=== PATIENT | female | born 1985 | race Caucasian/White ===

== ENCOUNTER 2022-05-06 01:04 | Emergency (ER) | payer OTHER, SELFPAY ==
--- NOTE | 2022-05-06 | ECG_ITS ---
Test Reason : CHEST PAIN Blood Pressure : / mmHG Vent. Rate : 089 BPM Atrial Rate : 089 BPM P-R Int : 132 ms QRS Dur : 098 ms QT Int : 336 ms P-R-T Axes : 061 048 027 degrees QTc Int : 408 ms Normal sinus rhythm Incomplete right bundle branch block Borderline ECG No previous ECGs available Referred By: Generic ED Physician Electronically Signed By:RUBEN UMAÑA MD
--- NOTE | ~2022-05-06 | XR_ITS ---
EXAMINATION: XR CHEST CLINICAL INFORMATION: Chest pain COMPARISON: None TECHNIQUE: 2 views of the chest were obtained. FINDINGS: No significant abnormality is noted involving the heart, lungs, mediastinum, bony thorax or soft tissues. XR/XR chest 2V IMPRESSION: Unremarkable examination.
[2022-05-06 01:11] VITALS: BP 177/87; PULSE 86; RESP 18; TEMP 36.6; O2SAT 100; BMI 36.4
--- NOTE | 2022-05-06 01:32 | ED.CHESTPAIN ---
HPI - Chest Pain General Chief Complaint: Chest Pain Stated Complaint: Chest Pain Time Seen by Provider: 05/06/22 01:32 Source: patient and other (Significant other, anti) Mode of arrival: ambulatory Limitations: no limitations History of Present Illness HPI narrative: 37-year-old female who presents emergency department for evaluation of intermittent chest pain x1 month. Patient describes the chest pain is a cramping sensation located in her left chest area, she gets 10-15 episodes daily lasting 10-30 minutes. The episodes come on at rest and with exertion. She states the pain is 9/10 at its worst. She states that occasionally she feels left arm numbness associated with the pain. She does feel short of breath but denies dyspnea on exertion. She states that she has constant nausea which is worse when she gets the chest pain. She denies lightheadedness or dizziness or diaphoresis associated with the pain. She states she has noted swelling of her lower extremities with her left lower extremity being larger than her right. She has not gone on any long trips her had any recent surgeries. Patient states that when she was 1st diagnosed with hypothyroidism she had similar symptoms, she states she has been compliant with her levothyroxine. She denied fever, chills, rhinorrhea, sore throat, cough, vomiting, diarrhea. Related Data Previous Rx's Medication Instructions Recorded levothyroxine 125 mcg capsule 125 mcg PO DAILY #30 caps 05/06/22 Allergies Allergy/AdvReac Type Severity Reaction Status Date / Time penicillin V Allergy Unknown GI Unverified 07/22/14 00:00 discomfort Sulfa (Sulfonamide Allergy Unknown rash Unverified 07/22/14 00:00 Antibiotics) Latex Allergy Unknown rash Uncoded 07/22/14 00:00 latex Allergy Unknown Uncoded 11/20/13 00:00 Review of Systems Review of Systems: Yes all other systems are reviewed and are negative [facility] Past Medical History [facility] Narrative: Past medical history: Ankylosing spondylitis of her lower back, asthma, hypothyroidism. Social history: She denies tobacco, alcohol and drug use. Social History Social History Alcohol intake: never Smoked in Last 30 Days: No Use of substances other than those prescribed or required for medical reasons: No Advance Directives: No Patient : No Physical Exam Vital Signs: Vital Signs: Last Vital Signs Temp 97.8 F 05/06/22 01:42 Pulse 86 05/06/22 01:42 Resp 16 05/06/22 01:42 BP 177/87 H 05/06/22 01:42 Pulse Ox 96 05/06/22 01:42 O2 Del Method 05/06/22 01:42 BMI result Body Mass Index 36.4 Const: General: cooperative and no acute distress Orientation/consciousness: oriented to person and oriented to place Limitations: no limitations HEENT: Head: Yes normal to inspection, Yes normocephalic and Yes atraumatic Ears: external ears normal General nose exam: Normal external nose present Face and sinus: Yes normal facial exam Mouth: Normal oral and palatal mucosa present Throat: Yes posterior oropharynx normal Eyes: General: appearance normal, both eyes and all related structures Pupils: Equal, round and reactive pupils present Neck: Neck: Yes normal visual inspection, Yes no lymphadenopathy, Yes trachea midline and Yes supple Chest: Chest palpation & inspection: normal inspection of the chest and normal palpation of entire chest wall Resp: Effort & Inspection: normal respiratory effort and able to speak in complete sentences Auscultation: clear to auscultation bilaterally Cardio: Rate: regular rate Rhythm: regular rhythm Heart sounds: S1 normal heart sound present, S2 normal heart sound present and no murmurs GI: Inspection: Yes normal to inspection Palpation (GI): Soft to palpation, nontender and no guarding Auscultation: normal bowel sounds : General: Yes no CVA tenderness Back/Spine/Pelvis: Back: no CVA tenderness Skin: General skin exam: no rashes or lesions noted Neuro: General: oriented to person and oriented to place Cranial nerves: Yes CN's II-XII intact bilaterally and Yes Equal, round and reactive pupils present Cognition (Neuro): normal cognition Motor exam (neuro): 5/5 motor strength present throughout Extrem: Other: Nonpitting edema of lower extremities, symmetric General: Yes normal to inspection Psych: Appearance: grossly normal Speech and movement: Normal speech and movement present Affect: normal affect Attitude: cooperative Thought process: Normal thought process present Thought content: Normal thought content present Medical Decision Making Medical Decision Making MDM Narrative: 37-year-old female with a history of asthma, lower back ankylosing spondylitis, hypothyroidism on thyroid replacement, as who presents emergency department for evaluation of intermittent left chest cramping sensation x1 month, daily episodes 10-15 per day lasting 10-30 minutes, 9/10 at its worst. Pain is not related to her exertion level pain patient has no significant cardiac risk factors. I ordered a CBC, CMP, troponin, PT INR, PTT, D-dimer, quantitative beta-hCG, urinalysis, TSH. Chest x-ray and EKG will be obtained. 0308: Patient most likely has musculoskeletal pain as the cause of her chest pain however she states she had similar pain when she was hypothyroid and her TSH is elevated suggesting that she may benefit from an increase in her levothyroxine from 75 mcg to 125 mcg daily. This may also improve her nonpitting edema. Patient will need to follow-up with her geothermal electrical engineer for further management of her hypothyroidism. Differential Diagnosis Coronary artery disease, STEMI, non-STEMI, pneumothorax, costochondritis, pulmonary embolism, hypothyroidism Lab Data MDM Lab Attestation statement: I reviewed the patient's lab results. My independent interpretation of the patient's laboratory evaluation is as follows: Patient's D-dimer was normal and troponin was below detectable limits suggesting that she does not have myocardial injury or pulmonary embolism as the cause of her pain. The rest of her laboratory evaluation was unremarkable except for an elevated TSH of 5.10 suggesting that the patient is under medicated with her levothyroxine at 75 mcg per day. Result Diagrams: 05/06/22 01:34 05/06/22 01:40 Labs: Lab Results 05/06/22 05/06/22 05/06/22 Range/Units 01:34 01:34 01:34 WBC 8.4 (4.8-10.8) X10*3/uL RBC 4.59 (4.20-5.50) X10*6/uL Hgb 13.2 (12.0-16.0) g/dl Hct 39.0 (37.0-47.0) % MCV 85.0 (80.0-98.0) fL MCH 28.8 (27.0-33.0) pg MCHC 33.8 (31.0-35.0) g/dl RDW 13.1 (11.0-16.0) % Plt Count 338 (160-400) X10*3/uL MPV 9.2 L (9.4-12.3) fL Immature Gran % (Auto) 0.1 (0.0-0.4) % Neut % (Auto) 54.5 (45-73) % Lymph % (Auto) 34.0 (20-40) % [place] % (Auto) 8.9 (2-11) % Eos % (Auto) 2.0 (0-4) % Baso % (Auto) 0.5 (0-2) % Lymph # (Auto) 2.9 (1.2-4.9) X10*3/uL [place] # (Auto) 0.8 (0.1-1.2) X10*3/uL Eos # (Auto) 0.2 (0.0-0.4) X10*3/uL Baso # (Auto) 0.0 (0.0-0.2) X10*3/uL Abs Immat Gran (auto) 0.01 (0.00-0.03) X10*3/uL Absolute Neuts (auto) 4.6 (2.0-8.3) x10*3/uL Absolute Nucleated RBC 0.000 (0.0-0.012) X10*3/uL Nucleated RBC % (auto) 0.0 (0.0-0.2) /100WBC PT (10.0-13.1) SEC INR (0.9-1.1) APTT (26.0-36.4) SEC PT Mixing Study Cancelled PT Normal Plasma Immed Cancelled PTT Mixing Study Cancelled PTT Normal Plasma Immed Cancelled PTT Normal Plasma Post Cancelled Mixing Interpretation Cancelled D-Dimer High Sensitivty NG/ML Sodium (135-145) mmol/L Potassium (3.3-5.1) mmol/L Chloride (96-108) mmol/L Carbon Dioxide (22-29) mmol/L Anion Gap (12-20) BUN (9-16) mg/dL Creatinine (0.5-1.4) mg/dL Estim Creat Clear Calc Estimated GFR Random Glucose (60-115) mg/dL Calcium (8.4-10.2) mg/dL Total Bilirubin (0.0-1.0) mg/dL AST (5-31) U/L ALT (0-31) U/L Alkaline Phosphatase (39-117) U/L Troponin I High Sens < 3.5 (<3.5-17.0) ng/L Total Protein (6.5-8.0) g/dL Albumin (3.5-5.0) g/dL TSH (0.32-4.0) uIU/mL Beta HCG, Quant mIU/mL Urine Color Urine Appearance Urine pH (5.0-9.0) Ur Specific [place] (1.005-1.025) Urine Protein (Neg-Trace) mg/dL Urine Glucose (UA) (Negative) mg/dL Urine Ketones (Negative) mg/dL Urine Blood (Negative) Urine Nitrite (Negative) Ur Leukocyte Esterase (Negative) Urine RBC (0-2) /HPF Urine WBC (0-5) /HPF Ur Squamous Epith Cells (0-2) /HPF Urine Bacteria (None Seen) Hyaline Casts (0-2) /LPF COVID-19 ([facility]) (Negative) COVID-19 Clin Com 05/06/22 05/06/22 05/06/22 Range/Units 01:34 01:35 01:40 WBC (4.8-10.8) X10*3/uL RBC (4.20-5.50) X10*6/uL Hgb (12.0-16.0) g/dl Hct (37.0-47.0) % MCV (80.0-98.0) fL MCH (27.0-33.0) pg MCHC (31.0-35.0) g/dl RDW (11.0-16.0) % Plt Count (160-400) X10*3/uL MPV (9.4-12.3) fL Immature Gran % (Auto) (0.0-0.4) % Neut % (Auto) (45-73) % Lymph % (Auto) (20-40) % [place] % (Auto) (2-11) % Eos % (Auto) (0-4) % Baso % (Auto) (0-2) % Lymph # (Auto) (1.2-4.9) X10*3/uL [place] # (Auto) (0.1-1.2) X10*3/uL Eos # (Auto) (0.0-0.4) X10*3/uL Baso # (Auto) (0.0-0.2) X10*3/uL Abs Immat Gran (auto) (0.00-0.03) X10*3/uL Absolute Neuts (auto) (2.0-8.3) x10*3/uL Absolute Nucleated RBC (0.0-0.012) X10*3/uL Nucleated RBC % (auto) (0.0-0.2) /100WBC PT 9.8 L (10.0-13.1) SEC INR 0.9 (0.9-1.1) APTT 29.4 (26.0-36.4) SEC PT Mixing Study PT Normal Plasma Immed PTT Mixing Study PTT Normal Plasma Immed PTT Normal Plasma Post Mixing Interpretation D-Dimer High Sensitivty 157 NG/ML Sodium 139 (135-145) mmol/L Potassium 3.8 (3.3-5.1) mmol/L Chloride 105 (96-108) mmol/L Carbon Dioxide 25 (22-29) mmol/L Anion Gap 13 (12-20) BUN 14 (9-16) mg/dL Creatinine 0.74 (0.5-1.4) mg/dL Estim Creat Clear Calc 114.1 Estimated GFR > 60 Random Glucose 110 (60-115) mg/dL Calcium 9.6 (8.4-10.2) mg/dL Total Bilirubin 0.6 (0.0-1.0) mg/dL AST 24 (5-31) U/L ALT 27 (0-31) U/L Alkaline Phosphatase 50 (39-117) U/L Troponin I High Sens (<3.5-17.0) ng/L Total Protein 6.7 (6.5-8.0) g/dL Albumin 4.2 (3.5-5.0) g/dL TSH 5.10 H (0.32-4.0) uIU/mL Beta HCG, Quant < 2 mIU/mL Urine Color Urine Appearance Urine pH (5.0-9.0) Ur Specific [place] (1.005-1.025) Urine Protein (Neg-Trace) mg/dL Urine Glucose (UA) (Negative) mg/dL Urine Ketones (Negative) mg/dL Urine Blood (Negative) Urine Nitrite (Negative) Ur Leukocyte Esterase (Negative) Urine RBC (0-2) /HPF Urine WBC (0-5) /HPF Ur Squamous Epith Cells (0-2) /HPF Urine Bacteria (None Seen) Hyaline Casts (0-2) /LPF COVID-19 ([facility]) Negative (Negative) COVID-19 Clin Com See Note 05/06/22 Range/Units 02:10 WBC (4.8-10.8) X10*3/uL RBC (4.20-5.50) X10*6/uL Hgb (12.0-16.0) g/dl Hct (37.0-47.0) % MCV (80.0-98.0) fL MCH (27.0-33.0) pg MCHC (31.0-35.0) g/dl RDW (11.0-16.0) % Plt Count (160-400) X10*3/uL MPV (9.4-12.3) fL Immature Gran % (Auto) (0.0-0.4) % Neut % (Auto) (45-73) % Lymph % (Auto) (20-40) % [place] % (Auto) (2-11) % Eos % (Auto) (0-4) % Baso % (Auto) (0-2) % Lymph # (Auto) (1.2-4.9) X10*3/uL [place] # (Auto) (0.1-1.2) X10*3/uL Eos # (Auto) (0.0-0.4) X10*3/uL Baso # (Auto) (0.0-0.2) X10*3/uL Abs Immat Gran (auto) (0.00-0.03) X10*3/uL Absolute Neuts (auto) (2.0-8.3) x10*3/uL Absolute Nucleated RBC (0.0-0.012) X10*3/uL Nucleated RBC % (auto) (0.0-0.2) /100WBC PT (10.0-13.1) SEC INR (0.9-1.1) APTT (26.0-36.4) SEC PT Mixing Study PT Normal Plasma Immed PTT Mixing Study PTT Normal Plasma Immed PTT Normal Plasma Post Mixing Interpretation D-Dimer High Sensitivty NG/ML Sodium (135-145) mmol/L Potassium (3.3-5.1) mmol/L Chloride (96-108) mmol/L Carbon Dioxide (22-29) mmol/L Anion Gap (12-20) BUN (9-16) mg/dL Creatinine (0.5-1.4) mg/dL Estim Creat Clear Calc Estimated GFR Random Glucose (60-115) mg/dL Calcium (8.4-10.2) mg/dL Total Bilirubin (0.0-1.0) mg/dL AST (5-31) U/L ALT (0-31) U/L Alkaline Phosphatase (39-117) U/L Troponin I High Sens (<3.5-17.0) ng/L Total Protein (6.5-8.0) g/dL Albumin (3.5-5.0) g/dL TSH (0.32-4.0) uIU/mL Beta HCG, Quant mIU/mL Urine Color Yellow Urine Appearance Cloudy Urine pH 5.5 (5.0-9.0) Ur Specific [place] 1.010 (1.005-1.025) Urine Protein Negative (Neg-Trace) mg/dL Urine Glucose (UA) Negative (Negative) mg/dL Urine Ketones Negative (Negative) mg/dL Urine Blood Negative (Negative) Urine Nitrite Negative (Negative) Ur Leukocyte Esterase Trace H (Negative) Urine RBC 0-2 (0-2) /HPF Urine WBC 0-5 (0-5) /HPF Ur Squamous Epith Cells 11-20 (0-2) /HPF Urine Bacteria Trace (None Seen) Hyaline Casts 0-2 (0-2) /LPF COVID-19 ([facility]) (Negative) COVID-19 Clin Com Independent Interpretation I performed an independent interpretation of an: EKG Interpretation: My independent interpretation of the EKG done at 01:09 hours: Normal sinus rhythm rate of 89, normal ME, QRS and QTC intervals, incomplete right bundle-branch block, no ST segment elevation, no ST segment depression, no significant T-wave abnormalities, no PACs, no PVCs Radiology Impression Discussion of test interpretation with radiology: I have reviewed the radiologist's reading. Radiologist Impression: My independent interpretation of the chest x-ray is that there was no acute disease noted to explain her pain. The radiologist impression is unremarkable examination I agree with this interpretation Independent Historian Clinical information obtained from an independent historian. History obtained from or confirmed by: Spouse Tests considered The following testing was considered but not selected: CT pulmonary angiogram PE protocol Prescription Management I considered prescription management with: Other (Increase her Levothyroxine 125 mcg daily) Discharge Plan Discharge Clinical Impression: Acute chest wall pain Hypothyroid Qualifiers: Hypothyroidism type: unspecified Qualified Code(s): E03.9 - Hypothyroidism, unspecified Patient Disposition: Home, Self-Care Instructions: Hypothyroidism (ED) Additional Instructions: Your EKG was unremarkable. Your chest x-ray was unremarkable per Your laboratory evaluation revealed a normal D-dimer (marker for blood clots) and a nondetectable high sensitive troponin (marker of heart damage). Your TSH was elevated at 5.1 (normal is 0.3-4.0), suggesting that your being under treated with your thyroid medication. This may explain your chest pain and the swelling in her legs. I want to increase your levothyroxine from 75 mcg daily to 125 mcg daily. Once we make a change in your thyroid medication it takes 4-6 weeks for the TSH to improve but it is important that you follow-up with your geothermal electrical engineer discuss this management plan. Follow-up with your doctor in 2 days. Please return to the emergency department if your symptoms get worse or if you develop any symptoms that are concerning to you. Prescriptions: New levothyroxine 125 mcg capsule 125 mcg PO DAILY Qty: 30 0RF
[2022-05-06 01:42] VITALS: BP 177/87; PULSE 86; RESP 16; TEMP 36.6; O2SAT 96
[2022-05-06 01:44] LABS: MANUAL DIFF FLAG NO
[2022-05-06 01:46] LABS: Basophils Percent Auto 0.5 % (0-2); Eosinophils Absolute Auto 0.2 X10*3/uL (0.0-0.4); Hemoglobin 13.2 g/dl (12.0-16.0); Imm Gran Abs Auto 0.01 X10*3/uL (0.00-0.03); Imm Gran Pct Auto 0.1 % (0.0-0.4); Lymphocytes Absolute Auto 2.9 X10*3/uL (1.2-4.9); Mean Corpuscular HGB Conc 33.8 g/dl (31.0-35.0); Mean Corpuscular Hemoglobin 28.8 pg (27.0-33.0); Mean Platelet Volume 9.2 fL (9.4-12.3); Monocytes Absolute Auto 0.8 X10*3/uL (0.1-1.2); Monocytes Percent Auto 8.9 % (2-11); Neutrophils Absolute Auto 4.6 x10*3/uL (2.0-8.3); Neutrophils Percent Auto 54.5 % (45-73); Platelet Count 338 X10*3/uL (160-400); Red Blood Count 4.59 X10*6/uL (4.20-5.50); Red Cell Distribution Width 13.1 % (11.0-16.0); White Blood Count 8.4 X10*3/uL (4.8-10.8)
[2022-05-06 01:59] LABS: INTERNATIONAL NORM RATIO 0.9 (0.9-1.1); Prothrombin Time 9.8 SEC (10.0-13.1)
[2022-05-06 02:01] LABS: D Dimer High Sensitivity 157 NG/ML; Partial Thromboplastin Time 29.4 SEC (26.0-36.4)
[2022-05-06 02:01] LABS: COVID-19 Test Negative (Negative); IDNOW Serial# BCCEAD1C
[2022-05-06 02:14] LABS: Troponin-I High Sensitivity < 3.5 ng/L (<3.5-17.0)
[2022-05-06 02:15] LABS: Appearance Urine Cloudy; Color Urine Yellow; Glucose Urine UA Negative (Negative); Leukocyte Esterase Urine Trace (Negative); Nitrite Urine Negative (Negative); PH 5.5 (5.0-9.0); UMIC TRIGGER UACC YES; Urine Blood Negative (Negative); Urine Ketones Negative (Negative); Urine Protein Negative (Neg-Trace)
[2022-05-06 02:16] LABS: Alanine Aminotransferase 27 U/L (0-31); Albumin Level 4.2 g/dL (3.5-5.0); Alkaline Phosphatase 50 U/L (39-117); Anion Gap 13 (12-20); Aspartate Amino Transferase 24 U/L (5-31); Bilirubin Total 0.6 mg/dL (0.0-1.0); Blood Urea Nitrogen 14 mg/dL (9-16); Calcium 9.6 mg/dL (8.4-10.2); Carbon Dioxide 25 mmol/L (22-29); Chloride 105 mmol/L (96-108); Creatinine Clr Calc Pharmacy 114.1; Estimated Glomerular Filt Rate > 60; Glucose Random 110 mg/dL (60-115); Potassium 3.8 mmol/L (3.3-5.1); Sodium 139 mmol/L (135-145); Total Protein 6.7 g/dL (6.5-8.0)
[2022-05-06 02:19] LABS: Bacteria Urine Trace (None Seen); Hyaline Casts Urine 0-2 /LPF (0-2); RBC Urine 0-2 /HPF (0-2); WBC Urine 0-5 /HPF (0-5)
[2022-05-06 02:32] LABS: HCG Quantitative < 2 mIU/mL
== END 2022-05-06 03:24 | disposition home or self-care (01) ==
PROVIDERS: Emergency Provider Emergency Medicine Emergency Medical Services; PCP Internal Medicine
DX: R07.89 Other chest pain (principal); E03.9 Hypothyroidism, unspecified; Z20.822 Contact with and (suspected) exposure to COVID-19; Z79.899 Other long term (current) drug therapy
CPT/HCPCS: 36415; 71046; 80053; 81001; 84443; 84484; 84702; 85025; 85379; 85610; 85730; 87635; 93005; 99284; 99285

== ENCOUNTER 2024-10-06 15:55 | Outpatient (AMB) | payer OTHER, SELFPAY ==
--- NOTE | 2024-10-06 16:01 | MHC.PC.OV ---
Vital Signs 10/06/24 16:02 Height 5 ft 3 in Weight 220 lb 9.6 oz BMI 39.1 BP 122/74 Blood Pressure Location Lt brachial Position Sitting Respiration 18 Pulse 87 Pulse Source Pulse Oximeter Temp 98.4 F Temp Source Oral Pulse Oximetry (%) 99 Oxygen Delivery Method Room Air Intake Visit Reasons: establish care Intake Note: Patient is a new patient here to establish care. Transferring care from [facility] in [facility]. Medical records have been requested and have not been received. Veterinary Laboratory Diagnostician Required: No Accompanied by: Self / Same As Patient Allergies penicillin V Allergy (Unknown, Verified 10/06/24 16:25) GI discomfort Sulfa (Sulfonamide Antibiotics) Allergy (Unknown, Verified 10/06/24 16:25) rash Latex Allergy (Unknown, Uncoded 10/06/24 16:25) rash latex Allergy (Unknown, Uncoded 10/06/24 16:25) Anaphylaxis Medication List - Last Reconciled 10/06/24 by CADE Horne beclomethasone dipropionate 80 mcg/actuation mcg inhalation levothyroxine 125 mcg PO DAILY lorazepam mg PO BID methocarbamol 1,500 mg PO Q8H PRN oxcarbazepine (Trileptal) 150 mg PO DAILY propranolol 10 mg PO ONCE Tobacco use date assessed: 10/06/24 Dental Screening Dental Screen Date: 10/06/24 Did you have a dental visit in the last 12 months?: No Did you have a dental problem in the last 6 months where you did not have access to dental care?: No Was dental information given to patient?: No HPI establish care HPI Details Previous PCP: [facility] in [facility] Last visit:July, Last PE: About a year ago Specialist: psychiatrist and mucker cofferdam OBGYN:Celestino Davey, [facility] Past medical history: severe anxiety, social anxiety, PTSD, hypothyroidism, htn, severe asthma, disc degeneration-, heart palpitation-started in july, reports snoring and increased tiredness, insomnia, motor tourettes syndrome Past surgical history: macular mold in eye closed and tonsils were removed Medications: Family HX: Problem: The patient is a 39-year-old female presenting for the management of chronic conditions which include anxiety, heart palpitations, and hypothyroidism. The patient's medical history is notable for severe anxiety, PTSD, and social anxiety, for which she has been under psychiatric care. Her history of a childhood back injury has resulted in degenerative disc disease. Her hypothyroidism is currently being managed, though she expresses concerns about fatigue potentially related to deficient hormone levels. Heart palpitations, a new concern since July, are most prevalent after certain activities and are accompanied by chest pain. The patient recently developed heartburn, potentially complicating these symptoms. Her sleep quality is poor, possibly linked to suspected but unconfirmed sleep apnea, exacerbating her fatigue. Additionally, the patient reports chronic asthma, currently stable, and experiences of severe unexplained swelling in her feet. Over the years, she has seen intermittent use of propranolol which has shown effectiveness in controlling both her hypertension and anxiety symptoms. However, the thyroid medication has shown variability in levels, previously managed by an neurosurgery physician. Over the last year, the patient's medication management has faced challenges due to side effects, necessitating ongoing adjustments of therapy, especially for psychiatric medications. She also reports non-specific musculoskeletal pain that worsens in colder climates, for which evaluation by rheumatology may be beneficial. [facility] Medical History (Updated 10/21/24 @ 09:42 by CADE Horne) Tourettes syndrome Disc degeneration, lumbar Asthma PTSD (post-traumatic stress disorder) Social anxiety disorder Severe anxiety Surgical History History of detached retina repair History of tonsillectomy Family History Father No problems noted. 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 1. Little interest or pleasure in doing things: not at all 2. Feeling down, depressed, or hopeless: not at all 3. Trouble falling or staying asleep, or sleeping too much: more than half the days 4. Feeling tired or having little energy: more than half the days 5. Poor appetite or overeating: more than half the days 6. Feeling bad about yourself - or that you are a failure or have let yourself or your family down: not at all 7. Trouble concentrating on things, such as reading the newspaper or watching television: more than half the days 8. Moving or speaking so slowly that other people could have noticed. Or the opposite - being so fidgety or restless that you have been moving around a lot more than usual: not at all 9. Thoughts that you would be better off or of hurting yourself in some way: not at all Total score: 8 Depression Screening Interpretation: Positive Depression Screening Done: Yes 11324 - PHQ-9 Billing: Yes Source: Developed by Drs. Jose Armijo, Nadia Moore, Rajinder Rizo and colleagues, with an educational carmela from [employer]. Thrive Questionnaire Date Thrive assessed: 10/06/24 I am a: Patient What is your living situation today?: I have a steady place to live Within the past 12 months, did the food you bought not last and you didn't have the money to get more?: I choose not to answer this question Within the past 12 months, did you worry whether your food would run out before you got money to buy more?: I choose not to answer this question Do you have trouble paying for medicines?: I choose not to answer this question Do you have trouble getting transportation to medical appointments?: I choose not to answer this question Do you have trouble paying your heating and electricity bill?: I choose not to answer this question Do you have trouble taking care of your child, family member or friend?: No Do you have trouble with day-to-day activities such as bathing, preparing meals, shopping, managing finances, etc.?: No Are you currently unemployed and looking for a job?: Yes Are you interested in more education?: No Please select the resources that you would like help with: None Currently or been in a relationship where the following occur: I choose not to answer THRIVE Score: 0 AUDIT C Alcohol Use Questionnaire (AUDIT-C) 1. How often do you have a drink containing alcohol?: Monthly or less 2. How many drinks containing alcohol do you have on a typical day when you are drinking?: 1 or 2 3. How often do you have six or more drinks on one occasion?: Never Total Score: 1 Score Reviewed/Action Taken: No KIM-7 AMB Questionnaire KIM-7 Date KIM - 7 assessed: 10/06/24 Feeling nervous, anxious, or on edge: 3 = Nearly every day Not being able to stop or control worryin = Nearly every day Worrying too much about different things: 2 = More than half the days Trouble relaxin = Nearly every day Being so restless that it is hard to sit still: 3 = Nearly every day Becoming easily annoyed or irritable: 2 = More than half the days Feeling afraid as if something awful might happen: 0 = Not at all Total KIM-7 score (0-4 normal; 5-9 mild; 10-14 moderate; 15-21 severe): 16 Source: Developed by Drs. Jose Armijo, Nadia Moore, Rajinder Rizo and colleagues, with an educational carmela from [employer]. KIM-7 Assessment Billing KIM-7 Assessment Tool: KIM-7 Assessment 39347 ACT Questionnaire In the past 4 weeks, how much of the time did your asthma keep you from getting as much done at work, school or at home?: All of the time During the past 4 weeks, how often have you had shortness of breath?: More than once a day During the past 4 weeks, how often did your asthma symptoms wake you up at night or earlier than usual in the morning?: 4 or more nights a week During the past 4 weeks, how often have you had to use your rescue inhaler or nebulizer medication?: 2-3 times a week How would you rate your asthma control during the past 4 weeks?: Poorly controlled ACT Interpretation: Positive Score: 8 Review of Systems Const Denies headache(s), Reports lethargy and Reports snoring Eyes Denies loss of vision ENT Denies vertigo, Denies dizziness, Denies headache(s) and Denies sore throat Card Reports chest pain, Denies leg edema and Denies lightheadedness Resp Denies cough, Denies hemoptysis, Reports snoring and Denies wheezing GI Denies abdominal pain, Denies melena, Denies constipation, Denies diarrhea and Denies vomiting Denies urinary frequency, Denies dysuria and Denies urinary urgency Musc Denies arthralgias, Denies joint swelling, Denies numbness and Denies tingling Neuro Denies Abnormal speech present, Denies behavioral changes, Denies vertigo, Denies dizziness, Denies headache(s), Denies loss of vision, Denies memory loss, Denies numbness and Denies tingling Psych Denies anxiety, Denies behavioral changes, Denies depression, Denies memory loss and Denies panic attacks Natanael/Lymph Denies easy bleeding and Denies easy bruising Aller/Immun Denies wheezing Physical exam (Primary Care) Vital Signs: Last Vital Signs Temp 98.4 F 10/06/24 16:02 Pulse 87 10/06/24 16:02 Resp 18 10/06/24 16:02 BP 122/74 10/06/24 16:02 Pulse Ox 99 10/06/24 16:02 Oxygen Delivery Method Room Air 10/06/24 16:02 BMI result Body Mass Index 39.1 Tobacco/Smoking Status: Tobacco use Status Tobacco use date assessed 10/06/24 10/06/24 16:23 Patient Tobacco Use Status Former Tobacco user 10/06/24 16:23 Tobacco use type Cigarette 10/06/24 16:23 e-Cigarette/Vaping Use Never Used 10/06/24 16:23 PHQ-9: PHQ-9 Score PHQ-9: Total score 8 10/21/24 09:40 Depression Screening Interpretation: Positive Thrive Assessment: Date of Thrive Assessment Date Thrive assessed 10/06/24 10/06/24 16:23 Currently or been in a relationship where the following occur: I choose not to answer Const General: healthy appearing, no acute distress, alert and awake Nutritional Appearance: well nourished Orientation/consciousness: oriented to person, oriented to place and oriented to time HENMT Ears: TM's normal bilaterally General nose exam: Normal nasal mucous membranes and turbinates present Eyes Conjunctivae: conjunctivae normal Sclerae: sclerae normal Pupils: Equal, round and reactive pupils present Neck Neck: Yes no lymphadenopathy and Yes no JVD Thyroid: Thyroid normal Carotids: no bruits Resp Effort & Inspection: normal respiratory effort and not tachypneic Auscultation: no crackles, no rales, no rhonchi and no wheezes Cardio Rate: regular rate Rhythm: regular rhythm Heart sounds: no murmurs and normal S1 and S2 GI Palpation (GI): Soft to palpation, nontender, no hepatomegaly and no splenomegaly Auscultation: normal bowel sounds Skin General skin exam: no rashes or lesions noted and dry skin Neuro General: oriented to person, oriented to place and oriented to time Cranial nerves: Yes Equal, round and reactive pupils present Speech: No Abnormal speech present Gait exam (Neuro): Normal gait present Motor exam (neuro): no tremor noted Extrem Right upper extremity: full ROM Left upper extremity: full ROM Right lower extremity: full ROM; no edema Left lower extremity: full ROM; no edema Psych Mental Status: mental status grossly normal Speech and movement: Normal speech and movement present Affect: normal affect Attitude: cooperative Thought process: Normal thought process present Coding Level of Care Code New Pt Level 4 (16951) Diagnoses Social anxiety disorder F40.10 Hypothyroid E03.9 Hypothyroidism type: unspecified Asthma, unspecified asthma severity, unspecified whether complicated, unspecified whether persistent J45.909 Asthma complication type: unspecified Asthma persistence: unspecified Asthma severity: unspecified severity Heart palpitations R00.2 Snoring R06.83 Daytime sleepiness R40.0 Additional Codes Asthma Control Questionnaire - ACT Interpretation: Positive ([id number]) KIM-7 Assessment Billing - KIM-7 Assessment Tool: KIM-7 Assessment 87404 ([id number]) PHQ-9 - 39508 - PHQ-9 Billing: Yes ([id number]) Time Spent (min) 40 Assessment & Plan Assessment & Plan (1) Social anxiety disorder: Code(s): F40.10 - Social phobia, unspecified Category: Medical Plan: Encouraged CBT Continue oxcarbazepine 150 mg daily, lorazepam 0.5 mg BID Follow up with Psychiatry as scheduled (2) Hypothyroid: Code(s): E03.9 - Hypothyroidism, unspecified Category: Medical Qualifiers: Hypothyroidism type: unspecified Qualified Code(s): E03.9 - Hypothyroidism, unspecified Plan: We will order labs and advise Continue levothyroxine 125 mcg daily (3) Asthma: Code(s): J45.909 - Unspecified asthma, uncomplicated Category: Medical Qualifiers: Asthma complication type: unspecified Asthma persistence: unspecified Asthma severity: unspecified severity Qualified Code(s): J45.909 - Unspecified asthma, uncomplicated Plan: continue beclomethasone dipropionate 80 mcg inhalation (4) Heart palpitations: Code(s): R00.2 - Palpitations Category: Medical Plan: Heart palpitation seemed to be anxiety related or possible thyroid function We will order labs and advise Follow up with Cardiology as scheduled (5) Snoring: Code(s): R06.83 - Snoring Category: Medical Plan: We will obtain sleep study (6) Daytime sleepiness: Code(s): R40.0 - Somnolence Category: Medical Plan: We will order in-home sleep study Orders: Orders Complete Blood Count Auto Diff 10/06/24 E03.9 - Hypothyroidism, unspecified, I10 - Essential (primary) hypertension, M25.50 - Pain in unspecified joint, A69.20 - Lyme disease, unspecified, Z00.00 - Encounter for general adult medical examination without abnormal findings, F41.9 - Anxiety disorder, unspecified, G47.00 - Insomnia, unspecified, R53.83 - Other fatigue Comprehensive [place]. Panel Fast 10/06/24 E03.9 - Hypothyroidism, unspecified, I10 - Essential (primary) hypertension, M25.50 - Pain in unspecified joint, A69.20 - Lyme disease, unspecified, Z00.00 - Encounter for general adult medical examination without abnormal findings, F41.9 - Anxiety disorder, unspecified, G47.00 - Insomnia, unspecified, R53.83 - Other fatigue Lipid Panel 10/06/24 E03.9 - Hypothyroidism, unspecified, I10 - Essential (primary) hypertension, M25.50 - Pain in unspecified joint, A69.20 - Lyme disease, unspecified, Z00.00 - Encounter for general adult medical examination without abnormal findings, F41.9 - Anxiety disorder, unspecified, G47.00 - Insomnia, unspecified, R53.83 - Other fatigue UA CC w/rflx Micro + Cult 10/06/24 E03.9 - Hypothyroidism, unspecified, I10 - Essential (primary) hypertension, M25.50 - Pain in unspecified joint, A69.20 - Lyme disease, unspecified, Z00.00 - Encounter for general adult medical examination without abnormal findings, F41.9 - Anxiety disorder, unspecified, G47.00 - Insomnia, unspecified, R53.83 - Other fatigue Vitamin D 25-OH Total 10/06/24 E03.9 - Hypothyroidism, unspecified, I10 - Essential (primary) hypertension, M25.50 - Pain in unspecified joint, A69.20 - Lyme disease, unspecified, Z00.00 - Encounter for general adult medical examination without abnormal findings, F41.9 - Anxiety disorder, unspecified, G47.00 - Insomnia, unspecified, R53.83 - Other fatigue Cyclic Citrullinated Peptide 10/06/24 M25.50 - Pain in unspecified joint, A69.20 - Lyme disease, unspecified, I10 - Essential (primary) hypertension, Z00.00 - Encounter for general adult medical examination without abnormal findings, F41.9 - Anxiety disorder, unspecified, G47.00 - Insomnia, unspecified, R53.83 - Other fatigue Erythrocyte Sedimentation Rate 10/06/24 M25.50 - Pain in unspecified joint, A69.20 - Lyme disease, unspecified, I10 - Essential (primary) hypertension, Z00.00 - Encounter for general adult medical examination without abnormal findings, F41.9 - Anxiety disorder, unspecified, G47.00 - Insomnia, unspecified, R53.83 - Other fatigue Uric Acid 10/06/24 M25.50 - Pain in unspecified joint, A69.20 - Lyme disease, unspecified, I10 - Essential (primary) hypertension, Z00.00 - Encounter for general adult medical examination without abnormal findings, F41.9 - Anxiety disorder, unspecified, G47.00 - Insomnia, unspecified, R53.83 - Other fatigue Rheumatoid Factor 10/06/24 M25.50 - Pain in unspecified joint, A69.20 - Lyme disease, unspecified, I10 - Essential (primary) hypertension, Z00.00 - Encounter for general adult medical examination without abnormal findings, F41.9 - Anxiety disorder, unspecified, G47.00 - Insomnia, unspecified, R53.83 - Other fatigue TSH reflex Free T4 10/06/24 E03.9 - Hypothyroidism, unspecified, I10 - Essential (primary) hypertension, M25.50 - Pain in unspecified joint, A69.20 - Lyme disease, unspecified, Z00.00 - Encounter for general adult medical examination without abnormal findings, F41.9 - Anxiety disorder, unspecified, G47.00 - Insomnia, unspecified, R53.83 - Other fatigue Free T4 (Free Thyroxine) 10/06/24 E03.9 - Hypothyroidism, unspecified, I10 - Essential (primary) hypertension, M25.50 - Pain in unspecified joint, A69.20 - Lyme disease, unspecified, Z00.00 - Encounter for general adult medical examination without abnormal findings, F41.9 - Anxiety disorder, unspecified, G47.00 - Insomnia, unspecified, R53.83 - Other fatigue NICOLÁS Reflex Titer and Pattern 10/06/24 M25.50 - Pain in unspecified joint, A69.20 - Lyme disease, unspecified, I10 - Essential (primary) hypertension, Z00.00 - Encounter for general adult medical examination without abnormal findings, F41.9 - Anxiety disorder, unspecified, G47.00 - Insomnia, unspecified, R53.83 - Other fatigue CRP High Sensitivity 10/06/24 M25.50 - Pain in unspecified joint, A69.20 - Lyme disease, unspecified, I10 - Essential (primary) hypertension, Z00.00 - Encounter for general adult medical examination without abnormal findings, F41.9 - Anxiety disorder, unspecified, G47.00 - Insomnia, unspecified, R53.83 - Other fatigue Medications: New omeprazole 20 mg PO DAILY 90 caps 1RF
[2024-10-06 16:02] VITALS: BP 122/74; PULSE 87; RESP 18; TEMP 36.9; O2SAT 99; BMI 39.1
--- OUTSIDE RECORDS SUMMARY | 2024-10-06 17:04 | XMS_ITS | Clinical Summary ---
Author Organization [facility] Address [address] [place] [address] Phone Care Team Providers Care Electrostatic Paint Operator Name Role Phone Renuka Barnhart MD Primary Care Provider [phone] Medical History Medical History Date Comments PCOS (polycystic ovarian syndrome) 12/26/2010 DX:PCOS (polycystic ovarian syndrome) Asthma 12/26/2010 DX:Asthma Family History Medical History Relation Name Comments Hypertension Mother Relation Name Status Comments Mother Social History Tobacco Use Types Packs/Day Years Used Date Smoking Tobacco: Some Days Smokeless Tobacco: Never Alcohol Use Standard Drinks/Week Comments Not Asked 0 (1 standard drink = 0.6 oz pur e alcohol) Comments Unknown Sex and Gender Information Value Date Recorded Sex Assigned at Not on file Legal Sex Female 7:18 AM EST Gender Identity Not on file Sexual Orientation Not on file Obstetrics History Plan of Treatment Upcoming Encounters Date Type Department Care Team (Late st Contact Info) Description 02/25/2025 9:20 AM EDT Office Visit [facility] Cardiology [facility] [address] [place] [phone] Willard Self MD [address] [place] [address] [address] [place] [address] Health Maintenance Due Date Last Done Comments DTaP,Tdap,and Td Vaccines (1 - Tdap) 2005 Hepatitis B Vaccines (1 of 3 - 19+ 3-dose series) 2005 Pneumococcal Vaccine: Pediat rics (0 to 5 Years) and At-Risk Patients (6 to 64 Years) (1 of 2 - PCV) 2005 Cervical Cancer Screening: P ap Smear 2007 COVID-19 Vaccine ( - 2023-2 5 season) 2024 Depression Screening 09/17/2024 HIV Screening 09/17/2024 Hepatitis C Screening 09/17/2024 Social Influencers of Health Screening 09/17/2024 Influenza Vaccine (Season Ended) 2025 HIB Vaccines Aged Out No longer eligi ble based on patient's age to complete this topic HPV Vaccines Aged Out No longer eligi ble based on patient's age to complete this topic Hepatitis A Vaccines Aged Out No long er eligible based on patient's age to complete this topic IPV Vaccines Aged Out No longer eligi ble based on patient's age to complete this topic MMR Vaccines Aged Out No longer eligi ble based on patient's age to complete this topic Meningococcal ACWY Vaccine Aged Out N o longer eligible based on patient's age to complete this topic Meningococcal B Vaccine Aged Out No l onger eligible based on patient's age to complete this topic RSV Immunization Patients Un serena 20 months Aged Out No longer eligible b ased on patient's age to complete this topic Varicella Vaccines Aged Out No longer eligible based on patient's age to complete this topic Insurance [employer] Care Teams Electrostatic Paint Operator Relationship Specialty Start Date End Date Renuka Barnhart MD [address] [place] [address] PCP - General Internal Medicine 09/10/24
== END 2024-10-06 17:05 | disposition home or self-care (01) ==
LOC: HO.HMCH 15:56
DX: F40.10 Social phobia, unspecified (principal); E03.9 Hypothyroidism, unspecified; J45.909 Unspecified asthma, uncomplicated; R00.2 Palpitations; R06.83 Snoring; R40.0 Somnolence

== ENCOUNTER → 2024-10-06 15:55 | Outpatient (BNVA) | payer OTHER, SELFPAY | DX: I10 Essential (primary) hypertension (principal); F41.9 Anxiety disorder, unspecified; F43.10 Post-traumatic stress disorder, unspecified; E03.9 Hypothyroidism, unspecified; J45.909 Unspecified asthma, uncomplicated; G47.00 Insomnia, unspecified; F40.10 Social phobia, unspecified; R00.2 Palpitations; R06.83 Snoring; R40.0 Somnolence | CPT/HCPCS: 96127; 96160 ==

== ENCOUNTER 2024-11-11 16:32 | Outpatient (REF) | payer OTHER, SELFPAY ==
--- OUTSIDE RECORDS SUMMARY | 2024-11-11 16:34 | XMS_ITS | Clinical Summary ---
Author Organization [facility] Address [address] [place] [address] Phone Care Team Providers Care Investigative Writer Name Role Phone Renuka Barnhart MD Primary Care Provider [phone] Medical History Medical History Date Comments PCOS [...] Description 02/25/2025 9:20 AM EDT Office Visit [facility] Cardiology [facility] [address] [place] [phone] Willard Self MD [address] [place] [address] [address] [place] [address] Health Maintenance Due Date Last Done Comments DTaP,Tdap,and Td Vaccines (1 - Tdap) 2005 Hepatitis B Vaccines (1 of 3 - 19+ 3-dose series) 2005 Pneumococcal Vaccine: Pediat rics (0 to 5 Years) and At-Risk Patients (6 to 49 Years) (1 of 2 - PCV) 2005 Cervical Cancer Screening: P ap Smear 2007 COVID-19 Vaccine (1 - 2023-2 5 season) 2024 Depression Screening 09/17/2024 HIV Screening 09/17/2024 Hepatitis C Screening 09/17/2024 Social Influencers of Health Screening 09/17/2024 Influenza Vaccine (#1) 2025 HIB Vaccines Aged Out No longer [...] complete this topic Insurance [employer] Care Teams Investigative Writer Relationship Specialty Start Date End Date Renuka Barnhart MD [address] [place] [address] PCP - General Internal Medicine 09/10/24
[2024-11-11 16:46] LABS: MANUAL DIFF FLAG NO
[2024-11-11 17:09] LABS: Hematocrit 39.2 % (37.0-47.0); Hemoglobin 13.0 g/dl (12.0-16.0); Imm Gran Abs Auto 0.02 X10*3/uL (0.00-0.03); Imm Gran Pct Auto 0.3 % (0.0-0.4); Lymphocytes Absolute Auto 2.4 X10*3/uL (1.2-4.9); Mean Corpuscular HGB Conc 33.2 g/dl (31.0-35.0); Mean Corpuscular Hemoglobin 28.9 pg (27.0-33.0); Mean Corpuscular Volume 87.1 fL (80.0-98.0); NRBC Abs Auto 0.000 X10*3/uL (0.0-0.012); NRBC Pct Auto 0.0 /100WBC (0.0-0.2); Platelet Count 378 X10*3/uL (160-400); Red Blood Count 4.50 X10*6/uL (4.20-5.50); White Blood Count 7.0 X10*3/uL (4.8-10.8)
[2024-11-11 17:23] LABS: Appearance Urine Clear; Glucose Urine UA Negative (Negative); PH 5.5 (5.0-9.0); Specific Gravity - Urine 1.025 (1.005-1.025)
[2024-11-11 17:48] LABS: Alanine Aminotransferase 17 U/L (0-31); Albumin Level 4.4 g/dL (3.5-5.0); Alkaline Phosphatase 61 U/L (39-117); Anion Gap 11 (12-20); Aspartate Amino Transferase 21 U/L (5-31); Blood Urea Nitrogen 9 mg/dL (9-16); Calcium 9.1 mg/dL (8.4-10.2); Carbon Dioxide 25 mmol/L (22-29); Chloride 108 mmol/L (96-108); Cholesterol 199 mg/dL (<200); Estimated Glomerular Filt Rate > 60; HDL Cholesterol 72 mg/dL (>40); Potassium 4.1 mmol/L (3.3-5.1); Sodium 140 mmol/L (135-145); Total Protein 7.0 g/dL (6.5-8.0); Triglycerides 127 mg/dL (<150); Uric Acid 3.7 mg/dL (2.4-5.7)
[2024-11-11 18:04] LABS: Free T4 (Free Thyroxine) 1.36 ng/dL (0.71-1.85)
[2024-11-18 11:03] LABS: Anti Nuclear Antibody Pattern Nuclear, Speckled; Anti Nuclear Antibody Screen POSITIVE (NEGATIVE); Anti Nuclear Antibody Titer 1:40 titer
== END 2024-11-11 16:33 | disposition home or self-care (01) ==
LOC: HO.LAB 16:32
DX: E03.9 Hypothyroidism, unspecified (principal); M25.50 Pain in unspecified joint; A69.20 Lyme disease, unspecified; Z00.00 Encounter for general adult medical examination without abnormal findings; F41.9 Anxiety disorder, unspecified; G47.00 Insomnia, unspecified; R53.83 Other fatigue; I10 Essential (primary) hypertension
CPT/HCPCS: 36415; 80053; 80061; 81003; 82306; 84439; 84443; 84550; 85025; 85652; 86038; 86039; 86141; 86200; 86431

== ENCOUNTER 2024-11-24 15:40 | Outpatient (AMB) | payer OTHER, SELFPAY ==
--- NOTE | 2024-11-24 15:48 | A.OFFPC_ITS ---
Vital Signs 11/24/24 15:49 Height 5 ft 3 in Weight 222 lb 6 oz BMI 39.4 BP 138/90 H Blood Pressure Location Lt brachial Position Sitting Pulse 88 Pulse Source Pulse Oximeter Temp 97.1 F Temp Source Temporal Artery Scan Pulse Oximetry (%) 98 Oxygen Delivery Method Room Air Intake Visit Reasons: annual exam Arabic Professor Required: No Accompanied by: Self / Same As Patient Allergies penicillin V Allergy (Unknown, Verified 11/24/24 16:02) GI discomfort Sulfa (Sulfonamide Antibiotics) Allergy (Unknown, Verified 11/24/24 16:02) rash Latex Allergy (Unknown, Uncoded 11/24/24 16:02) rash latex Allergy (Unknown, Uncoded 11/24/24 16:02) Anaphylaxis Medication List - Last Reconciled 11/24/24 by CADE Horne beclomethasone dipropionate 80 mcg/actuation mcg inhalation levothyroxine 125 mcg PO DAILY lorazepam mg PO BID methocarbamol 1,500 mg PO Q8H PRN omeprazole 20 mg PO DAILY oxcarbazepine (Trileptal) 150 mg PO DAILY propranolol 10 mg PO ONCE Tobacco use date assessed: 11/24/24 Dental Screening Dental Screen Date: 11/24/24 Did you have a dental visit in the last 12 months?: No Did you have a dental problem in the last 6 months where you did not have access to dental care?: No Was dental information given to patient?: Patient has dentist HPI annual exam HPI Details Dentist: not in the past year Eye: about year Snellen: Right: Left: Corrected vision: yes just glasses STI screening:n/a Colonoscopy:n/a Pap Smer: year ago, up to date PHQ-9: Flu: no COVID: x3 Tdap: up to date Diet: regular Exercise: not lately, patient is a 39-year-old female presenting with peripheral edema and asthma exacerbation. The patient reports persistent swelling in her ankles, which has been ongoing for an unspecified duration. She notes that the swelling is not as severe this week but remains a concern. The patient has a history of hypothyroidism, which is currently well-managed with medication. The patient experiences asthma symptoms, including wheezing and difficulty breathing, which have worsened over the past year and a half. She uses a Qvar inhaler daily and albuterol approximately three times a week to manage her symptoms. The patient reports that her asthma symptoms have become more frequent and severe, impacting her daily activities. A positive antinuclear antibody (NICOLÁS) test was noted, indicating a potential autoimmune issue, though specific diagnosis remains undetermined. The patient has a family history of lupus and Postural Orthostatic Tachycardia Syndrome (POTS), which raises concern for autoimmune conditions. The patient has been diagnosed with vitamin D deficiency, likely due to limited sun exposure during weekdays. She plans to take vitamin D supplements to address this deficiency. The patient has slightly elevated cholesterol levels, attributed to dietary habits, particularly increased consumption of barbeque and sweets during the summer. HPI Comments History of Present Illness Details - Vitamin D supplementation recommended due to deficiency - Referral to core machine operator for further evaluation of positive NICOLÁS test - Regular monitoring of cholesterol esdras aguirre advised [facility] Medical History Tourettes syndrome Disc degeneration, lumbar Asthma PTSD (post-traumatic stress disorder) Social anxiety disorder Severe anxiety Surgical History History of detached retina repair History of tonsillectomy Family History Father No problems noted. 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 Cognitive needs: No Hearing needs: No Vision needs: Yes (Glasses) Questionnaire Thrive Questionnaire Date Thrive assessed: 11/24/24 I am a: Patient What is your living situation today?: I have a steady place to live Within the past 12 months, did the food you bought not last and you didn't have the money to get more?: I choose not to answer this question Within the past 12 months, did you worry whether your food would run out before you got money to buy more?: I choose not to answer this question Do you have trouble paying for medicines?: I choose not to answer this question Do you have trouble getting transportation to medical appointments?: I choose not to answer this question Do you have trouble paying your heating and electricity bill?: I choose not to answer this question Do you have trouble taking care of your child, family member or friend?: No Do you have trouble with day-to-day activities such as bathing, preparing meals, shopping, managing finances, etc.?: No Are you currently unemployed and looking for a job?: Yes Are you interested in more education?: No Please select the resources that you would like help with: None Currently or been in a relationship where the following occur: I choose not to answer THRIVE Score: 0 KIM-7 AMB Questionnaire KIM-7 Date KIM - 7 assessed: 11/24/24 Source: Developed by Drs. Jose Armijo, Nadia Moore, Rajinder Rizo and colleagues, with an educational carmela from [employer]. Review of Systems Const Reports daytime sleepiness, Reports fatigue and Denies headache(s) Eyes Denies loss of vision ENT Denies vertigo, Denies dizziness, Denies headache(s) and Denies sore throat Card Denies chest pain, Denies leg edema, Denies lightheadedness and Reports dyspnea Resp Denies cough, Denies hemoptysis, Reports dyspnea and Reports wheezing GI Denies abdominal pain, Denies melena, Denies constipation, Denies diarrhea and Denies vomiting Denies urinary frequency, Denies dysuria and Denies urinary urgency Musc Reports arthralgias (multiple joints that fluctuates to different joints intermittently), Reports joint swelling (Ankles), Reports muscle cramps, Denies numbness and Denies tingling Skin/Breast Reports rash Neuro Denies Abnormal speech present, Denies behavioral changes, Denies vertigo, Denies dizziness, Denies headache(s), Denies loss of vision, Denies memory loss, Denies numbness and Denies tingling Psych Reports anxiety, Denies behavioral changes, Reports depression, Denies memory loss, Denies panic attacks, Denies homicidal ideation and Denies suicidal ideation Endo Reports fatigue Natanael/Lymph Denies easy bleeding and Denies easy bruising Aller/Immun Reports wheezing Physical exam (Primary Care) Vital Signs: Last Vital Signs Temp 97.1 F 11/24/24 15:49 Pulse 88 11/24/24 15:49 BP 138/90 H 11/24/24 15:49 Pulse Ox 98 11/24/24 15:49 Oxygen Delivery Method Room Air 11/24/24 15:49 BMI result Body Mass Index 39.4 Tobacco/Smoking Status: Tobacco use Status Tobacco use date assessed 11/24/24 11/24/24 15:54 Patient Tobacco Use Status Former Tobacco user 11/24/24 15:54 Tobacco use type Cigarette 11/24/24 15:54 e-Cigarette/Vaping Use Never Used 11/24/24 15:54 Thrive Assessment: Date of Thrive Assessment Date Thrive assessed 11/24/24 11/24/24 15:54 Currently or been in a relationship where the following occur: I choose not to answer Const General: healthy appearing, no acute distress, alert and awake Nutritional Appearance: well nourished Orientation/consciousness: oriented to person, oriented to place and oriented to time HENMT Ears: TM's normal bilaterally General nose exam: Normal nasal mucous membranes and turbinates present Eyes Conjunctivae: conjunctivae normal Sclerae: sclerae normal Pupils: Equal, round and reactive pupils present Neck Neck: Yes no lymphadenopathy and Yes no JVD Thyroid: Thyroid normal Carotids: no bruits Resp Effort & Inspection: normal respiratory effort and not tachypneic Auscultation: no crackles, no rales, no rhonchi and wheezes expiratory wheezes and upper bilaterally Cardio Rate: regular rate Rhythm: regular rhythm Heart sounds: S1 normal heart sound present, S2 normal heart sound present, no murmurs and normal S1 and S2 Peripheral pulses: Peripheral pulses 2+ throughout GI Palpation (GI): Soft to palpation, nontender, no hepatomegaly and no splenomegaly Auscultation: normal bowel sounds General: Yes no CVA tenderness Back/Spine/Pelvis Back: no CVA tenderness Thoracic/Lumbar Spine: No thoracic spinal tenderness and No lumbar spinal tenderness Skin General skin exam: no rashes or lesions noted and dry skin Neuro General: oriented to person, oriented to place and oriented to time Cranial nerves: Yes CN's II-XII intact bilaterally and Yes Equal, round and reactive pupils present Speech: No Abnormal speech present Gait exam (Neuro): Normal gait present Motor exam (neuro): no tremor noted Deep tendon reflexes (DTR's): Right triceps reflex intensity grade: 2+, Left triceps reflex intensity grade: 2+, Rt Biceps (C5, C6): 2+, Left biceps reflex intensity grade: 2+, Right brachioradialis reflex intensity grade: 2+, Left brachioradialis reflex intensity grade: 2+, Right patellar reflex intensity grade: 2+ and Left patellar reflex intensity grade: 2+ Extrem General: Yes pedal edema Right upper extremity: full ROM Left upper extremity: full ROM Right lower extremity: full ROM, edema and ankle Details: edema Details: non- pitting and 2+ Left lower extremity: full ROM, edema and ankle Details: pitting edema Details: non-pitting and 2+ Psych Mental Status: mental status grossly normal Speech and movement: Normal speech and movement present Affect: normal affect Attitude: cooperative Thought process: Normal thought process present Results Reviewed Results Reviewed: Laboratory Tests 11/11/24 11/11/24 16:40 16:45 WBC 7.0 RBC 4.50 Hgb 13.0 Hct 39.2 MCV 87.1 MCH 28.9 MCHC 33.2 RDW 13.1 Plt Count 378 MPV 9.3 L Immature Gran % (Auto) 0.3 Neut % (Auto) 55.3 Lymph % (Auto) 33.9 Harrison % (Auto) 7.6 Eos % (Auto) 2.0 Baso % (Auto) 0.9 Lymph # (Auto) 2.4 Harrison # (Auto) 0.5 Sodium 140 Potassium 4.1 Chloride 108 Carbon Dioxide 25 Anion Gap 11 L BUN 9 Creatinine 0.64 Estimated GFR > 60 Fasting Glucose 96 Uric Acid 3.7 Calcium 9.1 Total Bilirubin 0.6 AST 21 ALT 17 Alkaline Phosphatase 61 C-React Prot High Sens 5.0 H Total Protein 7.0 Albumin 4.4 Triglycerides 127 Cholesterol 199 LDL Cholesterol, Calc 102 H HDL Cholesterol 72 25-OH Vitamin D Total 24.6 L TSH 0.90 Free T4 1.36 Urine Color Yellow Urine Appearance Clear Urine pH 5.5 Ur Specific [place] 1.025 Urine Protein Negative Urine Glucose (UA) Negative Urine Ketones Negative Urine Blood Negative Urine Nitrite Negative Ur Leukocyte Esterase Negative Rheumatoid Factor < 13.0 Cycl Citrul Peptide IgG <16 NICOLÁS Screen POSITIVE A NICOLÁS Titer 1:40 H NICOLÁS Pattern Nuclear, Speckled A Coding Level of Care Code Est Pt Prev Care 18-39y(90806) Diagnoses Annual physical exam Z00.00 Tiredness R53.83 Other insomnia G47.09 Insomnia type: other insomnia Asthma, unspecified asthma severity, unspecified whether complicated, unspecified whether persistent J45.909 Asthma severity: unspecified severity Asthma persistence: unspecified Asthma complication type: unspecified Snoring R06.83 Daytime sleepiness R40.0 Multiple joint pain M25.50 Hypertension, unspecified type I10 Hypertension type: unspecified Social anxiety disorder F40.10 Severe anxiety F41.9 Anxiety F41.9 Heart palpitations R00.2 Time Spent (min) 39 Assessment & Plan Assessment & Plan (1) Annual physical exam: Code(s): Z00.00 - Encounter for general adult medical examination without abnormal findings Category: Medical (2) Tiredness: Code(s): R53.83 - Other fatigue Category: Medical (3) Insomnia: Code(s): G47.00 - Insomnia, unspecified Category: Medical Qualifiers: Insomnia type: other insomnia Qualified Code(s): G47.09 - Other insomnia (4) Asthma: Code(s): J45.909 - Unspecified asthma, uncomplicated Category: Medical Qualifiers: Asthma severity: unspecified severity Asthma persistence: unspecified Asthma complication type: unspecified Qualified Code(s): J45.909 - Unspecified asthma, uncomplicated (5) Snoring: Code(s): R06.83 - Snoring Category: Medical (6) Daytime sleepiness: Code(s): R40.0 - Somnolence Category: Medical (7) Multiple joint pain: Code(s): M25.50 - Pain in unspecified joint Category: Medical (8) HTN (hypertension): Code(s): I10 - Essential (primary) hypertension Category: Medical Qualifiers: Hypertension type: unspecified Qualified Code(s): I10 - Essential (primary) hypertension (9) Social anxiety disorder: Code(s): F40.10 - Social phobia, unspecified Category: Medical (10) Severe anxiety: Code(s): F41.9 - Anxiety disorder, unspecified Category: Medical (11) Anxiety: Code(s): F41.9 - Anxiety disorder, unspecified Category: Medical (12) Heart palpitations: Code(s): R00.2 - Palpitations Category: Medical Plan Preventative guidelines and recent labs reviewed with the patient. Patient had a Pap smear a year ago and is on schedule to follow up. Patient continues to have daytime sleepiness and feeling fatigue. His sleep study was ordered on her previous visit which has not been completed as yet. Thyroid levels are within normal limits. Continue levothyroxine 125 mcg daily we will recheck thyroid function in 3 months. Encouraged CBT. Continue oxcarbazepine 150 mg daily. Follow up with Psychiatry as scheduled. Patient has a history of on and off palpitation attributed to anxiety which is managed by propranolol. The patient continues to have swelling in lower extremities on and off. 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 However, the swelling is intermittent, she has an elevated crp at 5.0 which leads to concern of a inflammation process going on. The patient will be referred to a core machine operator for further evaluation of the positive antinuclear antibody NICOLÁS) test to explore potential autoimmune conditions such as lupus. Vitamin D supplementation is recommended to address the deficiency, and the patient is advised to increase sun exposure when possible. Cholesterol levels will be monitored regularly, and dietary modifications are suggested to manage the slight elevation. For asthma management, the patient will start using Advair and pause the current inhaler regimen to assess effectiveness. Follow-up in three months is planned to evaluate asthma control and adjust treatment as necessary. Patient was informed and verbally consented to the use of an ambient scribe for clinic note documentation during this visit. Orders: Referrals Rheumatology Referral R76.8 - Other specified abnormal immunological findings in serum Medications: New fluticasone propion-salmeterol 250-50 mcg/dose (Advair Diskus) 1 inh inhalation BID 60 ea 0RF Refilled levothyroxine 125 mcg PO DAILY 90 caps 3RF Patient Instructions: - Follow up with the core machine operator as referred for further evaluation of the positive NICOLÁS test. - Start vitamin D supplementation and try to increase sun exposure. - Monitor cholesterol levels and consider dietary changes to manage elevation. - Begin using Advair for asthma management and pause current inhalers. - Schedule a follow-up appointment in three months to assess asthma control.
[2024-11-24 15:49] VITALS: BP 138/90; PULSE 88; TEMP 36.2; O2SAT 98; BMI 39.4
--- OUTSIDE RECORDS SUMMARY | 2024-11-24 16:28 | XMS_ITS | Clinical Summary ---
Author Organization [facility] Address [address] [place] [address] Phone Care Team Providers Care Public Space Attendant Name Role Phone Renuka Barnhart MD Primary Care Provider [phone] Medical History Medical History Date Comments PCOS [...] Description 02/25/2025 9:20 AM EDT Office Visit [facility] Cardiology [facility] [address] [place] [phone] Willard Self MD [address] [place] [address] [address] [place] [address] Health Maintenance Due Date Last Done Comments DTaP,Tdap,and Td Vaccines (1 - Tdap) 2005 Hepatitis B Vaccines (1 of 3 - 19+ 3-dose series) 2005 Pneumococcal Vaccine: Pediat rics (0 to 5 Years) and At-Risk Patients (6 to 49 Years) (1 of 2 - PCV) 2005 Cervical Cancer Screening: P ap Smear 2007 COVID-19 Vaccine (1 - 2023-2 5 season) 2024 Depression Screening 05/06/2024 HIV Screening 09/17/2024 Hepatitis C Screening 09/17/2024 [...] complete this topic Insurance [employer] Care Teams Public Space Attendant Relationship Specialty Start Date End Date Renuka Barnhart MD [id number] [place] [address] PCP - General Internal Medicine 09/10/24
== END 2024-11-24 23:04 | disposition home or self-care (01) ==
LOC: HO.HMCH 15:41
DX: Z00.00 Encounter for general adult medical examination without abnormal findings (principal); R53.83 Other fatigue; G47.09 Other insomnia; J45.909 Unspecified asthma, uncomplicated; R06.83 Snoring; R40.0 Somnolence; M25.50 Pain in unspecified joint; I10 Essential (primary) hypertension; F40.10 Social phobia, unspecified; F41.9 Anxiety disorder, unspecified; R00.2 Palpitations

== ENCOUNTER 2025-01-25 16:17 | Outpatient (REF) | payer OTHER, SELFPAY ==
[2025-01-25 17:31] LABS: Appearance Urine Cloudy; Glucose Urine UA Negative (Negative); PH 5.0 (5.0-9.0); Specific Gravity - Urine 1.025 (1.005-1.025)
== END 2025-01-25 16:18 | disposition home or self-care (01) ==
LOC: HO.LAB 16:17
DX: R39.15 Urgency of urination (principal)
CPT/HCPCS: 81003

== ENCOUNTER 2025-02-16 15:59 | Outpatient (AMB) | payer OTHER, SELFPAY ==
--- NOTE | 2025-02-16 16:14 | A.OFFPC_ITS ---
Vital Signs 02/16/25 16:16 Height 5 ft 3 in Weight 223 lb 4 oz BMI 39.5 BP 118/68 Blood Pressure Location Rt brachial Position Sitting Pulse 86 Pulse Source Pulse Oximeter Temp 97.1 F Temp Source Temporal Artery Scan Pulse Oximetry (%) 98 Oxygen Delivery Method Room Air Intake Visit Reasons: asthma/swelling edema Intake Note: Patient is here to follow up on Asthma, Swelling edema. Flight Test Data Acquisition Technician Required: No Perforator: Not Required per policy Accompanied by: Self / Same As Patient Allergies penicillin V Allergy (Unknown, Verified 02/16/25 16:34) GI discomfort Sulfa (Sulfonamide Antibiotics) Allergy (Unknown, Verified 02/16/25 16:34) rash Latex Allergy (Unknown, Uncoded 02/16/25 16:34) rash latex Allergy (Unknown, Uncoded 02/16/25 16:34) Anaphylaxis Medication List - Last Reconciled 02/16/25 by CADE Horne fluticasone propion-salmeterol 250-50 mcg/dose (Advair Diskus) 1 inh inhalation BID levothyroxine (Synthroid) 125 mcg PO DAILY lorazepam 1 mg PO BID methocarbamol 1,500 mg PO Q8H PRN propranolol 10 mg PO ONCE Tobacco use date assessed: 02/16/25 Dental Screening Dental Screen Date: 11/24/24 HPI asthma/swelling edema HPI Details The patient is a 39-year-old female presenting with sinus arrhythmia and anxiety. The sinus arrhythmia was identified through a Holter monitor test conducted in August, which showed sinus arrhythmia along with other unspecified findings. The patient experiences palpitations that can become severe enough to cause a sensation of impending syncope. These episodes occur randomly and resolve spontaneously. Anxiety has been a contributing factor to the patient's symptoms, with episodes of increased heart rate and palpitations. The patient has been managing anxiety with lifestyle modifications and is awaiting further evaluation by a filament welder. The patient has a positive NICOLÁS test, which was not considered highly significant by the fancy sewer, and a follow-up is scheduled for March 19. The patient is currently on leave from work due to health concerns and is considering extending this leave until after the cardiology evaluation. The patient was found to have a vitamin D deficiency, for which she is taking supplements. She reports improvement in her vitamin D levels since starting supplementation. The patient found after stopping on of her Trileptal her joint swelling has decreased significantly She is seeing [facility] rheumatology Mar 21 and cardiology the end of February. REPLACED BY [facility] Medical History Tourettes syndrome Disc degeneration, lumbar Asthma PTSD (post-traumatic stress disorder) Social anxiety disorder Severe anxiety Surgical History History of detached retina repair History of tonsillectomy Family History Father No problems noted. 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 Cognitive needs: No Hearing needs: No Vision needs: Yes (Glasses) Questionnaire Thrive Questionnaire Date Thrive assessed: 10/06/24 I am a: Patient What is your living situation today?: I have a steady place to live Within the past 12 months, did the food you bought not last and you didn't have the money to get more?: I choose not to answer this question Within the past 12 months, did you worry whether your food would run out before you got money to buy more?: I choose not to answer this question Do you have trouble paying for medicines?: I choose not to answer this question Do you have trouble getting transportation to medical appointments?: I choose not to answer this question Do you have trouble paying your heating and electricity bill?: I choose not to answer this question Do you have trouble taking care of your child, family member or friend?: No Do you have trouble with day-to-day activities such as bathing, preparing meals, shopping, managing finances, etc.?: No Are you currently unemployed and looking for a job?: Yes Are you interested in more education?: No Please select the resources that you would like help with: None Currently or been in a relationship where the following occur: I choose not to answer THRIVE Score: 0 KMI-7 AMB Questionnaire KIM-7 Date KIM - 7 assessed: 11/24/24 Source: Developed by Drs. Jose Armijo, Nadia Moore, Rajinder Rizo and colleagues, with an educational carmela from [email or web address]. Review of Systems Const Denies body aches, Denies chills, Denies fever(s), Denies headache(s) and Denies poor appetite Eyes Reports no additional complaints ENT Denies dysphagia, Denies dizziness, Denies headache(s) and Denies odynophagia Card Denies chest pain, Denies syncope, Reports rapid heart rate, Denies edema, Denies irregular heart rhythm, Denies lightheadedness and Denies dyspnea Resp Denies cough and Denies dyspnea GI Denies abdominal pain, Denies constipation, Denies dysphagia, Denies diarrhea, Denies nausea, Denies odynophagia and Denies vomiting Reports no additional complaints Musc Denies deformity, Reports arthralgias (mild(multiple)) and Denies joint swelling Skin/Breast Reports system reviewed and no additional complaints, except as documented Neuro Denies dizziness, Denies syncope and Denies headache(s) Psych Reports anxiety and Reports panic attacks Physical exam (Primary Care) Vital Signs: Last Vital Signs Temp 97.1 F 02/16/25 16:16 Pulse 86 02/16/25 16:16 BP 118/68 02/16/25 16:16 Pulse Ox 98 02/16/25 16:16 Oxygen Delivery Method Room Air 02/16/25 16:16 BMI result Body Mass Index 39.5 Tobacco/Smoking Status: Tobacco use Status Tobacco use date assessed 02/16/25 02/16/25 16:24 Patient Tobacco Use Status Former Tobacco user 02/16/25 16:24 Tobacco use type Cigarette 02/16/25 16:24 e-Cigarette/Vaping Use Never Used 02/16/25 16:24 Thrive Assessment: Date of Thrive Assessment Date Thrive assessed 10/06/24 02/16/25 16:24 Currently or been in a relationship where the following occur: I choose not to answer Const General: cooperative, healthy appearing, comfortable and no acute distress Orientation/consciousness: patient oriented x3 HENMT Head: Yes normocephalic Ears: hearing grossly normal bilaterally General nose exam: Normal external nose present Eyes General: appearance normal, both eyes and all related structures Conjunctivae: conjunctivae normal Neck Neck: Yes full ROM and Yes no lymphadenopathy Resp Effort & Inspection: normal respiratory effort Auscultation: clear to auscultation bilaterally, no crackles, no rales, no rhonchi and no wheezes Cardio Rate: regular rate Rhythm: abnormal rhythm regularly irregular Heart sounds: S1 normal heart sound present and S2 normal heart sound present GI Palpation (GI): Soft to palpation, nontender and No hepatosplenomegaly present Auscultation: normal bowel sounds General: Yes no CVA tenderness Back/Spine/Pelvis Back: no CVA tenderness Skin General skin exam: no rashes or lesions noted Neuro General: patient oriented x3 Gait exam (Neuro): Normal gait present Extrem General: Yes normal to inspection, Yes full ROM and No edema Right lower extremity: ankle Details: no edema; no tenderness Left lower extremity: ankle Details: no edema; no tenderness Psych Affect: normal affect Attitude: cooperative Insight: Good insight present (Psych) Judgement: Good judgement present (Psych) Coding Level of Care Code Est Pt Level 4 (81613) Diagnoses Severe anxiety F41.9 Social anxiety disorder F40.10 Hypertension, unspecified type I10 Hypertension type: unspecified Heart palpitations R00.2 Multiple joint pain M25.50 Positive NICOLÁS (antinuclear antibody) R76.8 Obesity (BMI 35.0-39.9 without comorbidity) E66.9 Other insomnia G47.09 Insomnia type: other insomnia Asthma, unspecified asthma severity, unspecified whether complicated, unspecified whether persistent J45.909 Asthma complication type: unspecified Asthma persistence: unspecified Asthma severity: unspecified severity Snoring R06.83 Daytime sleepiness R40.0 Hypothyroid E03.9 Hypothyroidism type: unspecified Time Spent (min) 39 Assessment & Plan Assessment & Plan (1) Severe anxiety: Code(s): F41.9 - Anxiety disorder, unspecified Category: Medical Plan: The patient is seen a new psychiatrist who increased her Ativan from 0.5 b.i.d. to 1 mg b.i.d.. Reports that she is still getting some heart palpitation but t his has calmed down significantly. Denies SI/HI. Follow up with Psychiatry as scheduled (2) Social anxiety disorder: Code(s): F40.10 - Social phobia, unspecified Category: Medical Plan: Same as above. (3) HTN (hypertension): Code(s): I10 - Essential (primary) hypertension Category: Medical Qualifiers: Hypertension type: unspecified Qualified Code(s): I10 - Essential (primary) hypertension Plan: Blood pressure 118/68 within goal Reinforce low-salt diet and adequate hydration (4) Heart palpitations: Code(s): R00.2 - Palpitations Category: Medical Plan: Continue propranolol as ordered by psychiatry. The patient has an upcoming appointment with cardiology for further evaluation. The patient already completed an holter monitor that showed sinus arrhythmia. (5) Multiple joint pain: Code(s): M25.50 - Pain in unspecified joint Category: Medical Plan: Multiple joints discomfort ongoing but tolerable, per patient. continue methocarbamol 1500 mg Q 8H p.r.n. (6) Positive NICOLÁS (antinuclear antibody): Code(s): R76.8 - Other specified abnormal immunological findings in serum Category: Medical Plan: The patient is scheduled for a follow-up with a fancy sewer to monitor the significance of the positive NICOLÁS test. Her hours were decreased at work due to the increased stress she was having about her health condition, worrying about the unknown. She would like this to be extended until she is seen by rheumatology and cardiology. Will give an extension till March 21. (7) Obesity (BMI 35.0-39.9 without comorbidity): Code(s): E66.9 - Obesity, unspecified Category: Medical Plan: Discussed lifestyle modifications including dietary changes and physical activity The patient reports that she was given zepbound by an online line decorator and will be working on losing some weight. (8) Insomnia: Code(s): G47.00 - Insomnia, unspecified Category: Medical Qualifiers: Insomnia type: other insomnia Qualified Code(s): G47.09 - Other insomnia Plan: Reinforced sleep hygiene, continue lorazepam 1 mg at night (9) Asthma: Code(s): J45.909 - Unspecified asthma, uncomplicated Category: Medical Qualifiers: Asthma complication type: unspecified Asthma persistence: unspecified Asthma severity: unspecified severity Qualified Code(s): J45.909 - Unspecified asthma, uncomplicated Plan: Breathing has improved significantly since started on a Laba Continue Advair Diskus 250-50 mcg/dose inh BID (10) Snoring: Code(s): R06.83 - Snoring Category: Medical Plan: PATIENT WAS CONCERNED ABOUT SLEEP APNEA. A home sleep study was ordered but she has not completed this as yet. (11) Daytime sleepiness: Code(s): R40.0 - Somnolence Category: Medical Plan: same as above (12) Hypothyroid: Code(s): E03.9 - Hypothyroidism, unspecified Category: Medical Qualifiers: Hypothyroidism type: unspecified Qualified Code(s): E03.9 - Hypothyroidism, unspecified Plan: The patient was encouraged to complete repeat TFTs to reevaluate her levels Continue levothyroxine 125 mcg daily Explained to the patient that if she is working on losing weight, her thyroid levels could fluctuates and needs to be monitored closely. Orders: Orders TSH reflex Free T4 02/16/25 E03.9 - Hypothyroidism, unspecified Free T4 (Free Thyroxine) 02/16/25 E03.9 - Hypothyroidism, unspecified
[2025-02-16 16:16] VITALS: BP 118/68; PULSE 86; TEMP 36.2; O2SAT 98; BMI 39.5
--- OUTSIDE RECORDS SUMMARY | 2025-02-16 18:29 | XMS_ITS | Clinical Summary ---
Author Organization [facility] Address [address] [place] [address] Phone Care Team Providers Care Producer Name Role Phone Renuka Barnhart MD Primary Care Provider [phone] Medical History Medical History Date Comments PCOS [...] Description 02/25/2025 9:20 AM EDT Office Visit [facility] [address] [place] [address] Willard Self MD [address] [place] [address] [address] [place] [phone] Health Maintenance Due Date Last Done Comments DTaP,Tdap,and Td Vaccines (1 - Tdap) 2005 Hepatitis B Vaccines (1 of 3 - 19+ 3-dose series) 2005 Pneumococcal Vaccine: Pediat rics (0 to 5 Years) and At-Risk Patients (6 to 49 Years) (1 of 2 - PCV) 2005 Cervical Cancer Screening: P ap Smear 2007 HPV Vaccines (1 - 3-dose SCD M series) 2013 Depression Screening 05/06/2024 HIV Screening 09/17/2024 Hepatitis C Screening 09/17/2024 Social Influencers of Health Screening 09/17/2024 COVID-19 Vaccine (1 - 2023-2 5 season) 2025 Influenza Vaccine (#1) 2025 RSV Immunization Adult Patie nts (1 - 1-dose 75+ series) 2061 HIB Vaccines Aged Out No longer eligi [...] patient's age to complete this topic Insurance MEDICAID - [place] Care Teams Producer Relationship Specialty Start Date End Date Renuka Barnhart MD [id number] [place] [address] PCP - General Internal Medicine 09/10/24
== END 2025-02-16 23:59 | disposition home or self-care (01) ==
LOC: HO.HMCH 16:00
DX: I10 Essential (primary) hypertension (principal); F41.9 Anxiety disorder, unspecified; E66.9 Obesity, unspecified; Z68.39 Body mass index [BMI] 39.0-39.9, adult; F40.10 Social phobia, unspecified; R00.2 Palpitations; M25.50 Pain in unspecified joint; R76.8 Other specified abnormal immunological findings in serum; G47.09 Other insomnia; J45.909 Unspecified asthma, uncomplicated; R06.83 Snoring; R40.0 Somnolence

== ENCOUNTER → 2025-02-16 15:59 | Outpatient (BNVA) | payer OTHER, SELFPAY | DX: I10 Essential (primary) hypertension (principal); F41.9 Anxiety disorder, unspecified; I49.8 Other specified cardiac arrhythmias; E55.9 Vitamin D deficiency, unspecified; F40.10 Social phobia, unspecified; R00.2 Palpitations; M25.50 Pain in unspecified joint; R76.89 Other specified abnormal immunological findings in serum; G47.09 Other insomnia; J45.909 Unspecified asthma, uncomplicated; R06.83 Snoring; R40.0 Somnolence; E03.9 Hypothyroidism, unspecified; E66.9 Obesity, unspecified; Z68.39 Body mass index [BMI] 39.0-39.9, adult | CPT/HCPCS: 99212 ==